=== PATIENT | female | born 1965 | race Caucasian/White ===

== ENCOUNTER 2019-03-23 15:25 | Inpatient (IN) ==
[2019-03-23] MEDS ORDERED: Albuterol 2.5 MG/3 ML NEBULIZER IH PRN (15:49)
[2019-03-23] MEDS ORDERED: CeFAZolin Syr 2,000MG/20 ML 2,000 MG/20 ML SYRINGE IVPB ONE (15:49)
[2019-03-23] MEDS ORDERED: Acetaminophen IV 1,000 MG/100 ML INFUS..BTL IVPB ONE (15:50)
[2019-03-23] MEDS ORDERED: Famotidine 20 MG/2 ML VIAL IVP ONE (15:50)
[2019-03-23] MEDS ORDERED: Ringers Solution, Lactated 1,000 ML IVC SCH ×2 (16:00→19:53)
[2019-03-23] MEDS ORDERED: *HR* HYDROmorphone (PF) 1 MG/ML SYRINGE IVP PRN (16:16)
[2019-03-23] MEDS ORDERED: *HR* Promethazine 25 MG/ML VIAL IVP PRN (16:16)
[2019-03-23] MEDS ORDERED: Ondansetron 4 MG/2 ML VIAL IVP ONE (16:16)
[2019-03-23] MEDS ORDERED: *HR* OxyCODONE Immed Rel 5 MG TABLET PO PRN ×2 (16:16→19:53)
[2019-03-23] MEDS ORDERED: *HR* FentaNYL (PF) 100 MCG/2 ML VIAL ONE (16:43)
[2019-03-23] MEDS ORDERED: *HR* Propofol 200 MG/20 ML VIAL IVP ONE (16:44)
[2019-03-23] MEDS ORDERED: *HR* Midazolam HCl 2 MG/2 ML VIAL ONE (16:44)
[2019-03-23] MEDS ORDERED: Lidocaine -MPF 2% 2 ML VIAL ONE (16:51)
[2019-03-23] MEDS ORDERED: *HR* Succinylcholine 200 MG/10 ML VIAL IVP ONE (16:51)
[2019-03-23] MEDS ORDERED: Lidocaine HCL 4 ML Topical Solution (Laryng-O-Jet Kit Sterile Pak) TP ONE (16:52)
[2019-03-23] MEDS ORDERED: Ethanol\\Acetic Acid\\Na Ace\\Ben 1,000 ML IRRIG.SOLN IR ONE (16:53)
[2019-03-23] MEDS ORDERED: EPHEDrine 50 MG/ML VIAL ONE (17:46)
[2019-03-23] MEDS ORDERED: *HR* PHENYLEPHRINE 1,000 MCG/10 ML SYRINGE IVP ONE (17:48)
[2019-03-23] MEDS ORDERED: *HR* Enoxaparin 30 MG/0.3 ML SYRINGE SQ SCH ×2 (18:00→22:00)
[2019-03-23 19:19] LABS: Hematocrit 41.2 % (35.3-44.9); Hemoglobin 13.9 g/dL (11.5-15.4)
[2019-03-23] MEDS ORDERED: Sennosides 8.6 MG TABLET PO PRN (19:53)
[2019-03-23] MEDS ORDERED: *HR* OxyCODONE/APAP 5/325 TABLET PO PRN (19:53)
[2019-03-23] MEDS ORDERED: Naloxone 0.4 MG/ML INJ IVP PRN (19:53)
[2019-03-23] MEDS ORDERED: MOM Conc 10 ML UD.LIQ PO PRN (19:53)
[2019-03-23] MEDS ORDERED: Temazepam 15 MG CAPSULE PO PRN (19:53)
[2019-03-23] MEDS ORDERED: Ondansetron 4 MG/2 ML VIAL IVP PRN (19:53)
[2019-03-23 20:00] VITALS: BP 108/75
[2019-03-23] MEDS ORDERED: Pregabalin 75 MG CAPSULE PO SCH (21:00)
[2019-03-24] MEDS ORDERED: (Omeprazole 10 MG) PO SCH (09:00)
== END 2019-03-23 22:57 | disposition home or self-care (01) | DRG 483 ==
LOC: SAMDAY 15:25 → 3NENU 19:42
PROVIDERS: ADMIT Orthopaedic Surgery; ATTEND Orthopaedic Surgery